=== PATIENT | male | born 1945 | race Caucasian/White ===

== ENCOUNTER → 2017-10-11 | Outpatient (CLI) | payer MEDICARE, OTHER ==
[~2017-10-11] MED LIST: ASPI81TA86 PO; ASPI81TA94 PO; ATOR-1 PO; ATOR10TA24 PO; ATOR10TA65 PO; ATOR20TA65 PO; ATOR40TA69 PO; FLUT16SP19 NS; FLUT50DI3 IH; METF10002 PO; METF500T4 PO; TAMS0.4C70 PO; nasonex
== END ==
LOC: LAB 08:02
PROVIDERS: ATTEND Emergency Medicine
DX: E11.9 Type 2 diabetes mellitus without complications (principal)
CPT/HCPCS: 36415; 83036

== ENCOUNTER → 2018-01-08 | Outpatient (CLI) | payer MEDICARE, OTHER ==
[~2018-01-08] MED LIST changes: +AMLO-96 PO; +LISI-362 PO
== END ==
LOC: LAB 08:07
PROVIDERS: ATTEND Emergency Medicine
DX: I10 Essential (primary) hypertension (principal)
CPT/HCPCS: 36415; 82310; 82374; 82435; 82565; 82947; 84132; 84295; 84520

== ENCOUNTER → 2018-04-09 | Outpatient (CLI) | payer MEDICARE, OTHER ==
[~2018-04-09] MED LIST changes: +CALC-1 PO; +CHOL100058 PO; +CYAN20003 PO; +CYAN50008; +MULT1CAP59 PO
[2018-04-09 08:49] LABS: PLATELET COUNT, AUTOMATED 227 K/uL (150-450)
[2018-04-09 08:58] LABS: LDL CHOLESTEROL 50 mg/dl
== END ==
LOC: LAB 08:18
PROVIDERS: ATTEND Emergency Medicine
DX: Z12.5 Encounter for screening for malignant neoplasm of prostate (principal); E11.9 Type 2 diabetes mellitus without complications; I10 Essential (primary) hypertension
CPT/HCPCS: 36415; 82040; 82247; 82310; 82374; 82435; 82465; 82565; 82947; 83036; 83718; 84075; 84132; 84153; 84155; 84295; 84450; 84460; 84478; 84520; 85025

== ENCOUNTER → 2018-04-11 | Outpatient (CLI) | payer MEDICARE, OTHER | LOC: LAB 15:30 | PROVIDERS: ATTEND Emergency Medicine | DX: G62.9 Polyneuropathy, unspecified (principal) | CPT/HCPCS: 36415; 82607 ==

== ENCOUNTER → 2018-10-11 | Outpatient (CLI) | payer MEDICARE, OTHER ==
[~2018-10-11] MED LIST changes: +AMLO-125 PO; -AMLO-96 PO; +CYAN100088 PO
== END ==
LOC: LAB 08:20
PROVIDERS: ATTEND Emergency Medicine
DX: E11.9 Type 2 diabetes mellitus without complications (principal)
CPT/HCPCS: 36415; 83036

== ENCOUNTER → 2018-10-12 | Outpatient (CLI) | payer MEDICARE, OTHER ==
--- NOTE | 2018-10-12 09:06 | EKG ---
[place] [facility] [place] NAME: YING KENDALL : [id number] MR: [id number] V: [id number] EXAM DATE: ORDERING PHYSICIAN: AGUSTIN FLEMING TECHNOLOGIST: STEPHANIE Test Reason : PVC Blood Pressure : / mmHG Vent. Rate : 056 BPM Atrial Rate : 056 BPM P-R Int : 148 ms QRS Dur : 090 ms QT Int : 416 ms P-R-T Axes : 058 042 080 degrees QTc Int : 401 ms Sinus bradycardia Nonspecific T wave abnormality Abnormal ECG No previous ECGs available Confirmed by AGUSTIN FLEMING ([id number]) on 10/15/2018 2:27:02 PM Referred By: LONNIE Confirmed By:AGUSTIN FLEMING
== END ==
LOC: LAB 08:39
PROVIDERS: ATTEND Emergency Medicine
DX: Z02.9 Encounter for administrative examinations, unspecified (principal)